=== PATIENT | female | born 2000 | race Asian ===

== ENCOUNTER 2018-08-31 11:03 | Emergency (ER) | payer BC ==
[2018-08-31] MEDS ORDERED: NS 0.9% 1000 ML** 1,000 ML IV ONE (11:41)
[2018-08-31] MEDS ORDERED: Ketorolac INJ* 30 MG/ML 1 ML VIAL IV PUSH ONE (11:41)
[2018-08-31] MEDS ORDERED: Ondansetron INJ* 2 MG/ML VIAL IV ONE (11:41)
--- NOTE | 2018-08-31 11:45 | ED ---
Abdominal Pain/Female - HPI Summary HPI Summary: Pt is a 18 y/o F presenting to the ED with a chief complaint of abdominal pain. She states this morning at 0400 she woke up with the urge to urinate but could not. While trying to urinate, she had sudden onset severe back pain in her R lower back. The abdominal pain came on gradually, then developed into nausea and vomiting. She also reports chills. She denies fever, prior difficulty urinating, use of alcohol, drugs, or tobacco, and major surgeries. She currently rates the severity of her abd pain at a 9/10. She has hx of kidney stones as well as gastritis, but does not remember back pain when she had her kidney stones. She has not eaten today. NKDA. - History of Current Complaint Chief Complaint: EDFlankPain Stated Complaint: SEVERE ABD/BACK PAIN/VOMITING PER PT Time Seen by Provider: 08/31/18 11:15 Hx Obtained From: Patient Onset/Duration: Gradual Onset, Lasting Hours, Still Present Timing: Hours Severity Initially: Moderate Severity Currently: Severe Pain Intensity: 9 Pain Scale Used: 0-10 Numeric Location: Discrete At: RLQ Radiates: Yes Radiates to: Back Character: Cramping Aggravating Factor(s): Nothing Alleviating Factor(s): Nothing Associated Signs and Symptoms: Positive: Back Pain, Urinary Symptoms, Nausea, Vomiting. Negative: Fever Allergies/Adverse Reactions: Allergies Allergy/AdvReac Type Severity Reaction Status Date / Time No Known Allergies Allergy Verified 08/31/18 11:08 PMH/Surg Hx/FS Hx/Imm Hx Previously Healthy: Yes GI History: Reports: Other GI Disorders - gastritis History: Reports: Hx Kidney Stones Infectious Disease History: No Infectious Disease History: Denies: Traveled Outside the [place] in Last 30 Days - Family History Known Family History: Negative: Cardiac Disease - Social History Alcohol Use: Rare Hx Substance Use: No Substance Use Type: Reports: None Hx Tobacco Use: No Smoking Status (MU): Never Smoked Tobacco Review of Systems Positive: Chills. Negative: Fever Positive: Abdominal Pain, Vomiting, Nausea Positive: Myalgia - back pain All Other Systems Reviewed And Are Negative: Yes Physical Exam - Summary Physical Exam Summary: GENERAL: Patient is a well-developed and nourished F who is lying comfortable in the stretcher. Patient is not in any acute respiratory distress. HEAD AND FACE: Normocephalic EYES: PERRLA, EOMI x 2. EARS: Hearing grossly intact. MOUTH: Oropharynx within normal limits. NECK: Supple, trachea is midline, no adenopathy, no JVD, no carotid bruit. CHEST: Tenderness in the R CVA area LUNGS: Clear to auscultation bilaterally. No wheezing or crackles. CVS: Regular rate and rhythm, S1 and S2 present, no murmurs or gallops appreciated. ABDOMEN: Soft, tender to palpation in the RLQ. Bowel sounds are normal. No abnormal abdominal pulsations. EXTREMITIES: Full ROM in all major joints, no edema, no cyanosis or clubbing. NEURO: Alert and oriented x 3. No acute neurological deficits. Speech is normal and follows commands. SKIN: Dry and warm Triage Information Reviewed: Yes Vital Signs On Initial Exam: Initial Vitals Temp Pulse Resp BP Pulse Ox 97.1 F 91 19 114/88 100 08/31/18 11:04 08/31/18 11:04 08/31/18 11:04 08/31/18 11:04 08/31/18 11:04 Vital Signs Reviewed: Yes Diagnostics - Vital Signs Vital Signs Temp Pulse Resp BP Pulse Ox 08/31/18 11:36 92 127/84 100 08/31/18 11:35 88 99 08/31/18 11:04 97.1 F 91 19 114/88 100 - Laboratory Result Diagrams: 08/31/18 11:24 08/31/18 11:24 Lab Statement: Any lab studies that have been ordered have been reviewed, and results considered in the medical decision making process. Abdominal Pain Fem Course/Dx - Course Course Of Treatment: Pt is a 18 y/o F presenting to the ED with a chief complaint of abdominal pain currently rated at a 9/10. She reports difficulty urinating, back pain, abd pain, nausea, vomiting, and chills. She denies fever. She states she has hx of kidney stones and gastritis. On exam, the pt has R CVA tenderness and RLQ tenderness to palpation. Pts hematology shows WBC of 10.9, absolute neutrophils of 10.0, and absolute lymphs of 0.6. Her chemistry shows a lipase of <10. The pts urine shows 1+ ketones, 3+ blood, 3+ RBC, and present squamous epithelial cells. I will be d/c'ing the pt home with dx of kidney stone, and will be sending her Rx to [facility] pharmacy. She is stable and agreeable with this plan. She has been hemodynamically stable is safe for discharge. She will follow up with urology. - Diagnoses Provider Diagnoses: Renal calculi Discharge - Sign-Out/Discharge Documenting (check all that apply): Patient Departure Patient Received Moderate/Deep Sedation with Procedure: No - Discharge Plan Condition: Stable Disposition: HOME Prescriptions: Ibuprofen TAB* [Motrin TAB* 400 MG] 400 mg PO Q6H PRN #20 tab PRN Reason: Pain Ondansetron ODT TAB* [Zofran 4 MG Odt TAB*] 4 mg PO Q8H PRN #12 tab.odt PRN Reason: Vomiting oxyCODONE/Acetamin 5/325 MG* [Percocet 5/325 TAB*] 1 tab PO Q8H PRN #12 tab MDD 3 PRN Reason: Pain Tamsulosin HCl [Flomax] 0.4 mg PO DAILY #24 cap.er.24h Patient Education Materials: Kidney Stones (ED) Referrals: Devin Mccallum MD [Medical Doctor] - Additional Instructions: Please follow up with Dr. Mccallum of urology within the next 1-3 days. Return to the emergency department with any new or worsening symptoms. - Billing Disposition and Condition Condition: STABLE Disposition: Home - Attestation Statements Document Initiated by Kevin: Yes Documenting Scribe: Yaa Riley Provider For Whom Kevin is Documenting (Include Credential): Darcy Herrera MD. Scribe Attestation: Yaa Wang scribed for Darcy Herrera MD. on 08/31/18 at 1741. Scribe Documentation Reviewed: Yes Provider Attestation: The documentation as recorded by the Yaa covarrubias accurately reflects the service I personally performed and the decisions made by Rl chavarria MD. Status of Scribe Document: Viewed
[2018-08-31 11:48] LABS: ABS Lymphocytes 0.6 10^3/ul (1.0-4.8); ABS Monocytes 0.2 10^3/ul (0-0.8); Hematocrit 40 % (35-47); Hemoglobin 13.2 g/dL (12.0-16.0); Lymphocyte % 5.9 %; Mean Corpuscular HGB Conc 33 g/dL (31-36); Mean Corpuscular Hemoglobin 29 pg (27-31); Mean Corpuscular Volume 89 fL (80-97); Mean Platelet Volume 7.7 fL (7.4-10.4); Platelet Count 359 10^3/uL (150-450); Red Blood Count 4.56 10^6 /uL (3.70-4.87); Red Cell Distribution Width 14 % (10-15); White Blood Count 10.9 10^3/uL (3.5-10.8)
[2018-08-31 12:01] LABS: ALT 12 U/L (7-52); AST 18 U/L (13-39); Albumin 4.6 g/dL (3.2-5.2); Albumin/Globulin Ratio 1.4 (1-3); Alkaline Phosphatase 65 U/L (34-104); Anion Gap 9 mmol/L (2-11); BUN/Creatinine Ratio 16.9 (8-20); Blood Urea Nitrogen 15 mg/dL (6-24); C Reactive Protein 2.63 mg/L (<8.01); CO2 Carbon Dioxide 25 mmol/L (22-32); Calcium 9.8 mg/dL (8.6-10.3); Chloride 105 mmol/L (101-111); EGFR African American 97.8 (>60); EGFR Non-African American 80.9 (>60); Globulin 3.4 g/dL (2-4); Glucose 101 mg/dL (70-100); Potassium 3.9 mmol/L (3.5-5.0); Sodium 139 mmol/L (135-145)
[2018-08-31 12:06] LABS: HCG Pregnancy < 0.60 mIU/mL
[2018-08-31] MEDS ORDERED: Iohexol 300* (CONTRAST) 10 ML SDV IV ONE (12:37)
[2018-08-31 14:55] LABS: Urine Appearance Clear; Urine Bacteria Absent (Absent); Urine Bilirubin Negative (Negative); Urine Blood 3+ (Negative); Urine Color Straw; Urine Glucose Negative (Negative); Urine Ketones 1+ (Negative); Urine Nitrite Negative (Negative); Urine Protein Negative (Negative); Urine Red Blood Cell 3+(>10/hpf) (Absent); Urine Specific Gravity 1.033 (1.010-1.030); Urine Squamous Epithelial Cell Present (Absent); Urine Urobilinogen Negative (Negative); Urine White Blood Cell Trace(0-5/hpf) (Absent)
[2018-08-31 15:36] VITALS: BP 120/74
== END 2018-08-31 15:35 | disposition home or self-care (01) ==
LOC: ED 11:03
DX: N13.2 Hydronephrosis with renal and ureteral calculous obstruction (principal); Z87.442 Personal history of urinary calculi; R11.2 Nausea with vomiting, unspecified; R68.83 Chills (without fever)
CPT/HCPCS: 36415; 74177; 80053; 81003; 81015; 83605; 83690; 84702; 85025; 86140; 87086; 96361; 96374; 96375; 99283; J1885; J2405; Q9967